=== PATIENT | female | born 1980 | race Caucasian/White ===

== ENCOUNTER 2018-12-05 17:57 | Emergency (ER) | payer MEDICAID ==
[~2018-12-05] VITALS: Ht 162.6 cm; Wt 60.9 kg
[2018-12-05 18:02] VITALS: BP 138/72
== END 2018-12-05 19:10 | disposition home or self-care (01) ==
LOC: ED 18:59
DX: K02.9 Dental caries, unspecified (principal); F17.200 Nicotine dependence, unspecified, uncomplicated
CPT/HCPCS: 99283

== ENCOUNTER 2018-12-31 08:48 | Emergency (ER) | payer MEDICAID ==
[~2018-12-31] VITALS: Ht 162.6 cm; Wt 59.0 kg
[2018-12-31 08:52] VITALS: BP 119/76
[2018-12-31] MEDS ORDERED: IBUPROFEN 200 MG TABLET ONE (09:12)
--- NOTE | 2018-12-31 09:15 | NUR ---
AWOKE WITH RIGHT BOTTOM DENTAL PAIN
[2018-12-31] MEDS ORDERED: IBUPROFEN 200 MG TABLET PO ONE (09:30)
== END 2018-12-31 09:22 | disposition home or self-care (01) ==
LOC: ED 09:03
DX: K02.9 Dental caries, unspecified (principal)
CPT/HCPCS: 99283

== ENCOUNTER 2019-04-01 16:18 | Emergency (ER) | payer MEDICAID ==
[~2019-04-01] VITALS: Ht 162.6 cm; Wt 56.0 kg
[2019-04-01 16:20] VITALS: BP 109/68
--- NOTE | 2019-04-01 16:39 | NUR ---
PT TO XRAY
== END 2019-04-01 17:13 | disposition home or self-care (01) ==
LOC: ED 17:07
DX: R51 Headache (principal); R53.1 Weakness
CPT/HCPCS: 71046; 99283

== ENCOUNTER 2019-12-03 15:01 | Emergency (ER) | payer SELFPAY ==
[~2019-12-03] VITALS: Ht 162.6 cm; Wt 56.4 kg
[2019-12-03 15:30] VITALS: BP 99/43
--- NOTE | 2019-12-03 16:08 | NUR ---
CAROLANN RN: PT WALKED BACK FROM LOBBY TO ROOM AT THIS TIME.
--- NOTE | 2019-12-03 16:30 | NUR ---
At time of d/c, pt alert, oriented and NAD. Pt edcuated on home care, follow-up, OTC meds and prescriptions. Pt VU. Pt ambulated out of ER.
== END 2019-12-03 16:33 | disposition home or self-care (01) ==
LOC: ED 16:27
DX: K02.9 Dental caries, unspecified (principal); F17.210 Nicotine dependence, cigarettes, uncomplicated
CPT/HCPCS: 99283